=== PATIENT | male | born 1960 | race Caucasian/White ===

== ENCOUNTER 2016-10-07 00:51 | Inpatient (IN) | payer BC, OTHER ==
[~2016-10-07] VITALS: Ht 182.9 cm; Wt 65.1 kg
--- NOTE | ~2016-10-07 | OR ---
PATIENT'S NAME: KRISS PARDO [facility] AGE: 56 Y [address] ROOM: [place] [address] LOCATION: [facility] ADMIT DATE: 10/07/2016 OR/Procedure Report DISCHARGE DATE: 10/10/2016 FAMILY PHYSICIAN: Kristy Shah MD ATTENDING PHYSICIAN: Tip Rg SURGEON: Venancio Durán MD ROAD FREIGHT FIRER: DATE OF PROCEDURE: 10/10/2016 PROCEDURES PERFORMED: Fiberoptic bronchoscopy with therapeutic suctioning. INDICATION FOR PROCEDURE: Left lung collapse. CONSENT: Risks and benefits of the procedure were discussed with the patient including the risk of bleeding, infection, pneumothorax, and . The patient agreed to proceed with the procedure. PROCEDURE IN DETAIL: After the informed consent and a proper time-out was called by me and the Nursing staff, the patient was put to moderate sedation. The bronchoscope was introduced through the mouth and into the tracheobronchial tree. The patient tolerated the procedure well. COMPLICATIONS: There were no immediate complications. FINDINGS OF PROCEDURE: The vocal cords were normal moving with breathing, and the trachea was normal and was filled with thick secretions, which were suctioned out. The arielle was sharp and nonsplayed. The right mainstem was filled with secretions, but it was not occluded, which was suctioned out. The right upper, middle, and lower lobes were patent. There were some secretions which were suctioned out and washed out. The left mainstem was completely occluded with mucous plugging. It was suctioned out. There were white, thick secretions which were completely suctioned out. Then, the area was washed with normal saline and was suctioned out. The left upper lobe was completely occluded with thick, white mucous secretions which were suctioned out. The left lower lobe was the same and the whole left lung was washed out with saline and then cleaned out. There were still some thick secretions that will not be suctioned out, but the left lung opened with no significant obstruction. The bronchoscope was withdrawn. The patient tolerated the procedure well. POSTOPERATIVE CONDITION: The patient was transferred to PACU in stable condition. PATIENT'S NAME: KRISS PARDO [facility] AGE: 56 Y [address] ROOM: [place] [address] LOCATION: [facility] ADMIT DATE: 10/07/2016 OR/Procedure Report DISCHARGE DATE: 10/10/2016 FAMILY PHYSICIAN: Kristy Shah MD ATTENDING PHYSICIAN: Tip Rg CONCLUSION: Successful bronchoscopy with therapeutic suctioning of mucous plug from the left mainstem and re-inflating of the left lung field. I thank you for allowing me to participate in the care of this patient. MD JENNIFER RASCON/vikki /[id number] d: 10/13/16 0131 t: 10/16/16 0910, OPERATIVE SUMMARY
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
--- NOTE | ~2016-10-07 | DS ---
PATIENT'S NAME: KRISS PARDO [facility] AGE: 56 Y [address] [id number] [address] LOCATION: GICU ADMIT DATE: 10/07/2016 Discharge Summary DISCHARGE DATE: 10/10/2016 FAMILY PHYSICIAN: Kristy Shah MD ATTENDING PHYSICIAN: Tip Vazquez ADDENDUM: The patient will also follow up with Dr. Durán on October 14. He is to follow up with primary care physician in 1 week. He is to have a repeat CT scan of the head in 3 weeks. If the patient has increase in headaches or neurologic changes, he is to notify his primary care physician or go to an emergency room. STEVEN HUBBARD PA-C FOR TIP VAZQUEZ MD KDK/modl /[id number] d: 10/14/16 0846 t: 10/24/16 0652, DISCHARGE SUMMARY
--- NOTE | ~2016-10-07 | PUL ---
PATIENT'S NAME: KRISS PARDO [facility] AGE: 56 Y [address] [id number] [address] LOCATION: GICU ADMIT DATE: 10/07/2016 Pulmonary DISCHARGE DATE: 10/10/2016 FAMILY PHYSICIAN: Kristy Shah MD ATTENDING PHYSICIAN: Tip Rg NAME OF PROCEDURE: Overnight Pulse Oximetry DATE OF PROCEDURE: October 09 to October 10, 2016 REASON FOR EXAM: Nocturnal hypoxemia RESULTS: The test was performed on room air. The recording time and total valid sampling time were 9 hours, 5 minutes, and 32 seconds. The highest pulse was 117, lowest pulse 65, with a mean pulse of 79. The highest SpO2 was 93%, lowest 80%, with a mean SpO2 88.1%. The patient spent 5 hours, 11 minutes and 12 seconds with SpO2 less than 89%, representing 57% of the total sleep time. The desaturation event index was 0.8. PHYSICIAN INTERPRETATION: The patient has evidence of significant nocturnal hypoxia and would qualify for supplemental oxygen as per Medicare criteria. MD ANITA WAGONER/josé antonio /[id number] dtt: 10/13/16 1628 , CHASTITY MALDONADO dtd: 10/13/16 1419
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
[2016-10-07] MEDS ORDERED: THERAGRAN-M1 TAB PO (11:13)
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
--- NOTE | 2016-10-07 16:44 | NUR ---
Attempted to talk with patient, but he is very sleepy. Does tell me he has insurance and lives with his . In hallway ran into his and a friend. Introduced self and role of care management to and friend. says they just took his insurance card to admission. Told them that was good, we will follow up with them. They anticipate he will go home when ready for discharge. will be available to assist him at home. Will follow.
--- NOTE | 2016-10-08 05:05 | NUR ---
Significant Event: PATIENT IS DROWSY AND ORIENTED X3. FOLLOWS COMMANDS. VSS. PERRLA. DENIES N/T, CARSON, OR BLURRED VISION. NSR 60-70'S. SBP 120'S-130'S. EDEMA TO THE LEFT EYE. ROOM AIR- 2L AT NOC. REGULAR DIET-TAKES PILLS WHOLE WITH WATER. LAST BM 10/06-BOWELS ARE ACTIVE. ELKINS CATH D/C'D THIS AM-HAS NOT VOIDED YET. 1A GB. BILAT FA PIV'S-SL'D. SLING TO LEFT ARM. SOFT COLLAR FOR COMFORT-PRN. LACERATION TO LEFT EAR THAT HAS SUTURES. Follow up: MONITOR LOC.
[2016-10-08 05:27] LABS: BASOPHIL % 0.2 %; EOSINOPHIL % 0.1 %; HEMATOCRIT 37.3 % (37.0-53.0); HEMOGLOBIN 12.5 g/dL (12.0-17.0); IMMATURE GRANULOCYTE % 0.3 %; LYMPHOCYTE % 8.1 %; MCH 32.9 pg (27.0-34.0); MCHC 33.5 gm/dL (32.0-36.5); MCV 98.2 fl (83.0-98.0); MONOCYTE # 0.6 K/uL (0.0-1.0); MONOCYTE % 4.8 %; MPV 8.9 fl (9.4-12.4); NEUTROPHIL # (ANC) 10.8 K/uL (1.4-9.0); NEUTROPHIL % 86.5 %; NRBC % 0 /100WBC (0-0.00); PLATELET COUNT 258 K/uL (150-450); RDW-CV 14.2 % (11.9-14.6); WBC 12.4 K/uL (4.0-11.0)
[2016-10-08 05:48] LABS: ALBUMIN 3.1 gm/dL (3.5-5.0); ALK PHOS 82 IU/L (33-138); ALT 38 IU/L (12-78); ANION GAP 10.7 (10.0-19.0); AST 68 IU/L (10-40); BLOOD UREA NITROGEN 11 mg/dL (6-24); CALCIUM 7.8 mg/dL (8.5-10.5); CHLORIDE 103 mMol/L (96-110); CO2 27 mMol/L (22-32); CREATININE 0.6 mg/dL (0.6-1.3); ESTIMATED GFR (MDRD EQUATION) > 60; POTASSIUM 3.7 mMol/L (3.7-5.1); SODIUM 137 mMol/L (135-145); TOTAL BILIRUBIN 0.6 mg/dL (0.0-1.5); TOTAL PROTEIN 6.4 g/dL (6.0-8.4)
--- NOTE | 2016-10-08 15:02 | NUR ---
Significant Event: PT ALERT AND ORIENTED X3. CALM AND COOPERATIVE WITH CARES. PEARLA, 3 AND BRISK. NO C/O N/T. PULSES 2+, 60S-70S. SBP 119-139. UP WITH 1-2 ASSIST. HAS NOT YET VOIDED SINCE ELKINS REMOVAL, NO C/O PAIN OR FULLNESS IN BLADDER. GAVE 2 TABS NORCO AT 1110 FOR PAIN 5/10, BROUGHT PAIN TO 0/10. Follow up: CONTINUE TO MONITOR, PAIN CONTROL.
--- NOTE | 2016-10-09 02:04 | NUR ---
Significant Event: A/Ox3. Denies numbness/tingling and follows all commands. Left arm sling and arm elevated with pillows. Takes [place] for pain x2. 1A with gait belt to bathroom. Hypertensive, other VSS. Ointment and ear drop to left ear. 3L O2 NC. Calm and cooperative with cares. Follow up:
--- NOTE | 2016-10-09 17:21 | NUR ---
Significant Event: PT ALERT AND ORIENTED X3. NO N/T/CARSON. LUNG SOUNDS COARSE FOR MAJORITY OF SHIFT. ENCOURAGED TO COUGH AND USE IS. ON 3L PER NC SATS 89-95%. PAIN IN LEFT SHOULDER/ARM 4-7. NORCO X1 AT 0741. WALKED HALLS TWICE TODAY. Follow up: MONITOR, PAIN CONTROL
--- NOTE | 2016-10-10 02:07 | NUR ---
Significant Event: A/Ox3. Denies numbness or tingling and follows commands. 131-153 SBP and 74-103 heart rate. Has been doing trend ox tonight since after 10pm and on room air. Sats 89-90% on room air. Previously on 3L O2 NC. Called physician due to chest xray in the morning of 10/09 revealed left lung collapse which was different than previous chest xray. Physician came to floor to see patient and ordered a stat chest xray and after physician reviewed stat chest xray a pulmonary consult is to be done in the morning. Spoke with physician about 99.8 temperature after Tylenol(in [place]) and CBC is ordered in the morning also. Wears left arm sling and ambulates 1A with gait belt. Ointment and ear drop administered to left ear. Follow up:
[2016-10-10 05:36] LABS: BASOPHIL % 0.2 %; EOSINOPHIL % 0.3 %; HEMATOCRIT 37.3 % (37.0-53.0); HEMOGLOBIN 12.4 g/dL (12.0-17.0); IMMATURE GRANULOCYTE # 0.1 K/uL (0.0-0.3); IMMATURE GRANULOCYTE % 0.6 %; LYMPHOCYTE # 1.2 K/uL (0.8-4.0); LYMPHOCYTE % 11.1 %; MCH 33.1 pg (27.0-34.0); MCHC 33.2 gm/dL (32.0-36.5); MCV 99.5 fl (83.0-98.0); MONOCYTE # 0.9 K/uL (0.0-1.0); MONOCYTE % 8.3 %; MPV 9.1 fl (9.4-12.4); NEUTROPHIL # (ANC) 8.6 K/uL (1.4-9.0); NEUTROPHIL % 79.5 %; NRBC % 0 /100WBC (0-0.00); PLATELET COUNT 277 K/uL (150-450); RBC 3.75 M/uL (4.00-6.00); RDW-CV 14.1 % (11.9-14.6); WBC 10.8 K/uL (4.0-11.0)
--- NOTE | 2016-10-10 13:58 | NUR ---
Significant Event: a/o x 3. pain to left shoulder and left side tolerable. patient states "I have had much worse pain than this". Denies numbness/tingling. equal strength throughout. Does have left arm in sling for left clavicle fx. Does have abrasion to left shoulder that is open to air- scabs dry/intact with no drainage. continues on 3 liters of oxygen. ambulates with gait belt and one assist. Left NTU/ICU at 1330 per w/c accompanied by transport staff for bronchoscopy of the left lung. Chest x rays indicated left lung collapse. Dr. Durán updated this morning on consultation and is performing the bronchoscopy. Takes meds whole. Took meds with sips of water this am. Has been NPO since last night. Discharge plan- Home when ready.
[2016-10-10] MEDS ORDERED: MS CONTIN15 MG PO (19:19)
[2016-10-10] MEDS ORDERED: NORCO 10-325 T1 EACH PO (19:19)
[2016-10-10] MEDS ORDERED: CIPRO500 MG PO (19:20)
[2016-10-10] MEDS ORDERED: NORCO 5-325 TA1 EACH PO (20:47)
--- NOTE | 2016-10-11 00:03 | NUR ---
Patient dismissed to home at 2124 this shift. Patient was a/o x 3. Had all belongings. Went home with 2 friends. Education was given to both patient and friends. Escorted to [facility] with ARIANNE.
== END 2016-10-10 21:25 | disposition disaster alternative care site (69) | DRG 82 ==
LOC: GACC 00:51 → GICU 04:55
PROVIDERS: Surgery; ADMIT Surgery
PROC: 0BC88ZZ Extirpation of Matter from Left Upper Lobe Bronchus, Via Natural or Artificial Opening Endoscopic (ICD-10-PCS; principal; 2016-10-10)
DX: S06.319A Contusion and laceration of right cerebrum with loss of consciousness of unspecified duration, initial encounter (principal); J96.00 Acute respiratory failure, unspecified whether with hypoxia or hypercapnia; J98.19 Other pulmonary collapse; F10.920 Alcohol use, unspecified with intoxication, uncomplicated; J98.09 Other diseases of bronchus, not elsewhere classified; S02.82XA Fracture of other specified skull and facial bones, left side, initial encounter for closed fracture; S42.002A Fracture of unspecified part of left clavicle, initial encounter for closed fracture; S42.102A Fracture of unspecified part of scapula, left shoulder, initial encounter for closed fracture; V29.9XXA Motorcycle rider (driver) (passenger) injured in unspecified traffic accident, initial encounter; F17.210 Nicotine dependence, cigarettes, uncomplicated
CPT/HCPCS: J1170; J2270; J3411; J7030; Q9967